=== PATIENT | female | born 1985 | race Caucasian/White ===

== ENCOUNTER 2021-11-26 13:47 | Emergency (ER) | payer OTHER, SELFPAY ==
[2021-11-26 13:50] VITALS: BP 166/85; PULSE 85; RESP 16; TEMP 36.6; O2SAT 100; BMI 22.4
--- NOTE | 2021-11-26 15:58 | ED_ITS ---
HPI - Back Pain/Injury General Chief Complaint: Back Pain/Injury Stated Complaint: right pain between back and chest Time Seen by Provider: 11/26/21 15:44 History of Present Illness HPI Narrative: Patient is a 36-year-old female with no past medical history is presenting today with right-sided chest shoulder pain. She says been ongoing for last 4 days. She says she bleached her hair with care diet as she did it twice left it on for an hour each time. She does has done this multiple times in the past. She is not concerned that she may have damaged her liver. She has absolutely no abdominal pain no nausea no vomiting no fever. It does not hurt when she moves. She says her pain is right from her nipple around to her back. Kind of in her scapula. She has no chest pain no shortness of breath. Not reproducible with arm movement. She says she has been traveling for the last 6 months they stay in 1 place for a month and then move on. They are now here permanently. She does not yet have provider set up. She previously had ulcers from ibuprofen. She has not taken any [id number] medication any. Related Data Allergies Allergy/AdvReac Type Severity Reaction Status Date / Time No Known Drug Allergies Allergy Verified 11/26/21 13:57 Review of Systems Review of Systems Narrative: GENERAL: Denies chills, fatigue, malaise, fever, sweats, travel HEENT: Denies sinus pain, ear pain, sore throat, difficulty swallowing, neck pain RESPIRATORY: Denies dyspnea, cough, wheezing, hemoptysis, sputum. CARDIOVASCULAR: See HPI GASTROINTESTINAL: Denies nausea, vomiting, abdominal pain, diarrhea, constipation, melena. : Denies dysuria, frequency, incontinence, hematuria, urinary retention, flank pain. MUSCULOSKELETAL: Denies weakness, joint pain, or bony pain SKIN: No rash, no erythema, no pruritus NEUROLOGIC: Denies weakness, dizziness, headache, numbness, change in speech, confusion PSYCHIATRIC: No concerning psychosocial issues. 12 point review of systems is negative except for those stated above and HPI Patient History Social History Smoking Status: Never smoker Smoking Status: Never smoker alcohol intake frequency: 0-2 drinks per day Substance Use Type: marijuana Exam Initial Vital Signs Initial Vital Signs: Vital Signs Temperature 97.9 F 11/26/21 13:50 Pulse Rate 85 11/26/21 13:50 Respiratory Rate 16 11/26/21 13:50 Blood Pressure 166/85 H 11/26/21 13:50 Pulse Oximetry 100 11/26/21 13:50 Oxygen Delivery Method 11/26/21 13:50 GENERAL: Well-appearing, well-nourished and in no acute distress. HEENT: Head atraumatic,EOMI, pupils reactive, face symmetric, moist mucous membranes CARDIOVASCULAR: Regular rate and rhythm without murmurs, rubs or gallops. Pain is mildly reproducible on back with scapula. RESPIRATORY: Breath sounds equal bilaterally, no wheezes rales or rhonchi. ABDOMEN: Soft, nontender. Normoactive bowel sounds all 4 quadrants. No guarding or rebound. No Mcgarry sign : No CVA tenderness EXTREMITIES: Normal range of motion, no clubbing or edema. Neurovascularly intact NEUROLOGICAL: Alert and oriented x4. SKIN: Warm, dry, no laceration, no petechiae, no rashes or lesions. Scores PERC Score Age greater than or equal to 50 years: No Heart rate greater than or equal to 100 bpm: No Room Air O2 Sat less than 95%: No Unilateral leg swelling: No Recent trauma or surgery: No Hemoptysis: No Prior PE or DVT: No Hormone Use: No Total PERC Score: 0 Course Orders Ordered: ED Orders 11/26/21 16:09 Chest [XR chest 2V] Stat 11/26/21 16:30 CBC Auto Diff [Complete Blood Count AUTO DIFF] Stat CMP [Comprehensive Metabolic Panel] Stat D Dimer Stat Vital Signs Vital signs: Vital Signs - 8 hr 11/26/21 13:50 11/26/21 17:09 Temperature 97.9 F Pulse Rate 85 Respiratory Rate 16 Blood Pressure 166/85 H 156/84 H Pulse Oximetry 100 99 Oxygen Delivery Method Room Air Room Air MDM - Back Pain/Injury Lab Data Result diagrams: 11/26/21 16:30 11/26/21 16:30 Labs: Lab Results 11/26/21 11/26/21 11/26/21 Range/Units 16:30 16:30 16:30 WBC 6.5 (4.5-11.0) X10^3/uL RBC 4.87 (4.0-5.2) X10^6/uL Hgb 13.5 (12.0-16.0) g/dL Hct 40.3 (36-46) % MCV 82.7 (80-100) fL MCH 27.7 (26-34) PG MCHC 33.5 (30-36) % RDW 12.9 (11.6-14.8) % Plt Count 305 (150-400) X10^3/uL Neut % (Auto) 70.9 (50-75) % Lymph % (Auto) 22.7 L (25-40) % Towner % (Auto) 5.1 (3-14) % Eos % (Auto) 0.6 L (2-4) % Baso % (Auto) 0.7 (0-2) % Neut # (Auto) 4600 (8363-5706) /uL Lymph # (Auto) 1500 (3704-1059) /uL Towner # (Auto) 300 (0-900) /uL Eos # (Auto) 0 (0-450) /uL Baso # (Auto) 0 (0-100) /uL D-Dimer < 200 (<230) ng/mL Sodium 138 (137-145) mmol/L Potassium 3.9 (3.4-5.1) mmol/L Chloride 105 (98-107) mmol/L Carbon Dioxide 26 (22-32) mmol/L BUN 9 (7-17) mg/dL Creatinine 0.67 (0.52-1.04) mg/dL Estimated GFR > 60 (>60) mL/min BUN/Creatinine Ratio 13.4 (6-22) Glucose 95 (70-100) mg/dL Calcium 9.4 (8.4-10.2) mg/dL Total Bilirubin 0.6 (0.2-1.3) mg/dL AST 24 (14-36) IU/L ALT 14 (<35) IU/L Alkaline Phosphatase 51 (38-126) U/L Total Protein 7.7 (6.3-8.2) g/dL Albumin 4.8 (3.5-5.0) g/dL Globulin 2.9 (1.7-4.1) g/dL Albumin/Globulin Ratio 1.7 (1.0-2.8) MDM Narrative Medical decision making narrative: Topical air bleach should not cause damage to liver when used appropriately. She states that she did use it twice but this is unlikely a significant amount. Blood work is overall reassuring. Due to her recent travel D-dimer was checked and is negative. She has a negative chest x-ray. It does hurt mildly when she moves her arm but really is not pinpoint. He does not want to take any pain medications afraid of masking something important. She previously had gastric ulcers from taking ibuprofen so I recommend Tylenol if she wants. This time there is no need for any further workup. Patient is reassured Discharge Plan Departure Patient Disposition: Home Clinical Impression: Back strain Activity Restrictions/Additional Instructions: *You have been diagnosed with back strain *What to do: There is no evidence of a liver damage or kidney damage. Chest x- ray is negative./at this time recommend increasing activity as tolerated, heating pad *Continue to take medications as directed Tylenol 1000 mg every 6 hours if needed for fcgg-di-guahcoha pain *Follow up with your primary care provider in 2-3 days or call [phone] *Return to ER if you should have nausea vomiting fever increasing chest pain or shortness of breath or any new, worsening or concerning symptoms Visit Report Forms: Patient Portal/API
--- NOTE | 2021-11-26 16:09 | DI.RAD.S_ITS ---
PROCEDURE: XR CHEST 2V INDICATIONS: right sided pain TECHNIQUE: 2 views of the chest were acquired. COMPARISON: None. FINDINGS: Surgical changes and devices: None. Lungs and pleura: Lungs are clear. No pleural effusions or pneumothorax. Mediastinum: Mediastinal contours are normal. Heart size is normal. Bones and chest wall: No suspicious bony abnormalities. Soft tissues appear unremarkable. IMPRESSION: No acute cardiopulmonary abnormality. Dictated by: Irvin Adam M.D. on 11/26/2021 at 16:34 Approved by: Irvin Adam M.D. on 11/26/2021 at 16:35
[2021-11-26 16:38] LABS: Add Manual Diff / Slide Review NO; Basophils Absolute Auto 0 /uL (0-100); Basophils Percent Auto 0.7 % (0-2); Eosinophils Absolute Auto 0 /uL (0-450); Eosinophils Percent Auto 0.6 % (2-4); Hematocrit 40.3 % (36-46); Hemoglobin 13.5 g/dL (12.0-16.0); Lymphocytes Absolute Auto 1500 /uL (1100-4500); Lymphocytes Percent Auto 22.7 % (25-40); Mean Corpuscular HGB Conc 33.5 % (30-36); Mean Corpuscular Hemoglobin 27.7 PG (26-34); Mean Corpuscular Volume 82.7 fL (80-100); Monocytes Absolute Auto 300 /uL (0-900); Monocytes Percent Auto 5.1 % (3-14); Neutrophils Absolute Auto 4600 /uL (1500-7000); Neutrophils Percent Auto 70.9 % (50-75); Platelet Count 305 X10^3/uL (150-400); Red Blood Cell Count 4.87 X10^6/uL (4.0-5.2); Red Cell Distribution Width 12.9 % (11.6-14.8); White Blood Cell Count 6.5 X10^3/uL (4.5-11.0)
[2021-11-26 16:52] LABS: Alanine Aminotransferase 14 IU/L (<35); Albumin 4.8 g/dL (3.5-5.0); Albumin Globulin Ratio 1.7 (1.0-2.8); Alkaline Phosphatase 51 U/L (38-126); Aspartate Aminotransferase 24 IU/L (14-36); BUN Creatinine Ratio 13.4 (6-22); Bilirubin Total 0.6 mg/dL (0.2-1.3); Blood Urea Nitrogen 9 mg/dL (7-17); Calcium 9.4 mg/dL (8.4-10.2); Carbon Dioxide 26 mmol/L (22-32); Chloride 105 mmol/L (98-107); Estimated Glomerular Filt Rate > 60 mL/min (>60); Globulin 2.9 g/dL (1.7-4.1); Glucose 95 mg/dL (70-100); HEMOLYSIS < 15 (0-50); Potassium 3.9 mmol/L (3.4-5.1); Sodium 138 mmol/L (137-145); Total Protein 7.7 g/dL (6.3-8.2)
[2021-11-26 16:53] LABS: D Dimer < 200 ng/mL (<230)
[2021-11-26 17:09] VITALS: BP 156/84; O2SAT 99
== END 2021-11-26 17:09 | disposition home or self-care (01) ==
PROVIDERS: Emergency Provider Emergency Medicine
DX: S39.012A Strain of muscle, fascia and tendon of lower back, initial encounter (principal); R07.9 Chest pain, unspecified
CPT/HCPCS: 36415; 71046; 80053; 85025; 85379; 99281; 99284

== ENCOUNTER → 2022-03-29 12:13 | Outpatient (CLI) | payer OTHER, SELFPAY ==
[2022-03-29 13:09] LABS: Add Manual Diff / Slide Review NO; Basophils Absolute Auto 0 /uL (0-100); Basophils Percent Auto 0.5 % (0-2); Eosinophils Absolute Auto 100 /uL (0-450); Eosinophils Percent Auto 1.5 % (2-4); Hematocrit 40.3 % (36-46); Hemoglobin 13.8 g/dL (12.0-16.0); Lymphocytes Absolute Auto 1900 /uL (1100-4500); Mean Corpuscular HGB Conc 34.2 % (30-36); Mean Corpuscular Hemoglobin 28.3 PG (26-34); Mean Corpuscular Volume 82.7 fL (80-100); Monocytes Absolute Auto 400 /uL (0-900); Monocytes Percent Auto 6.2 % (3-14); Neutrophils Absolute Auto 3800 /uL (1500-7000); Neutrophils Percent Auto 60.8 % (50-75); Platelet Count 311 X10^3/uL (150-400); Red Blood Cell Count 4.88 X10^6/uL (4.0-5.2); White Blood Cell Count 6.2 X10^3/uL (4.5-11.0)
[2022-03-29 14:41] LABS: Blood Urea Nitrogen 13 mg/dL (7-17); Calcium 9.9 mg/dL (8.4-10.2); Carbon Dioxide 24 mmol/L (22-32); Chloride 106 mmol/L (98-107); Estimated Glomerular Filt Rate > 60 mL/min (>60); Glucose 91 mg/dL (70-100); HEMOLYSIS < 15 (0-50); Sodium 139 mmol/L (137-145)
== END ==
PROVIDERS: PCP Family Medicine; Referring Provider Family Medicine; Visit Provider Family Medicine
DX: K62.5 Hemorrhage of anus and rectum (principal); Z80.0 Family history of malignant neoplasm of digestive organs
CPT/HCPCS: 36415; 80048; 85025

== ENCOUNTER 2023-11-10 10:28 | Day surgery (SDC) | payer OTHER, SELFPAY ==
[2023-11-10] MEDS: LACTATED RINGERS 1,000 ML 42 ML IV (10:55)
--- NOTE | 2023-11-10 11:06 | P.HP_ITS ---
History of Present Illness History of Present Illness Date Patient Seen: 11/10/23 Time Patient Seen: 11:06 Chief complaint: Colonoscopy Narrative: 48-year-old woman with a BRCA mutation here for 1st time screening colonoscopy. Occasional rectal bleeding during wiping. [facility] Medical History BRCA gene mutation positive in female FHx: breast cancer in first degree relative ADD (attention deficit disorder) without hyperactivity History of cold sores Chicken pox (~1990) Heavy menstrual period Hemorrhoid Left arm pain Mental health disorder Rectal bleeding FHx: colon cancer Surgical History Buck[place] teeth removed Uterine polyp (~2014) Family History Grandfather Cancer Grandmother Cancer Social History Smoking Status: Former smoker Meds Home Medications and Allergies Home Medications Medication Instructions Recorded Confirmed Type peg 3350-sod sulf,[id number] 1,000 ml PO DIRECTED #2,000 mL 09/28/23 Rx 178.7-7.3-0.5-1.12-0.9 gram oral soln (Suflave) Allergies Allergy/AdvReac Type Severity Reaction Status Date / Time No Known Drug Allergies Allergy Verified 06/18/23 11:23 Exam Narrative Exam Narrative: General adult woman alert oriented no acute distress Chest nonlabored respiration Extremities warm well perfused Assessment & Plan Assessment & Plan narrative: The patient requires colorectal screening and colonoscopy is recommended. Technical details were discussed. Risks, benefits, alternatives explained. Risks including but not limited to myocardial infarction, aspiration, bleeding, pain, missed lesion, incomplete examination, need for further radiographic studies, intestinal injury, and need for major abdominal surgery were discussed. All questions were answered to their satisfaction, and they are in agreement with this plan.
[2023-11-10 11:09] VITALS: BP 156/97; PULSE 104; RESP 18; TEMP 37.2; O2SAT 100
--- NOTE | 2023-11-10 11:12 | P.OP.COLON_ITS ---
Operative Date/Time/Diagnoses Date of procedure: 11/10/23 Time of procedure: 11:26 Pre-op diagnosis: Colorectal screening Post-op diagnosis: same Procedure & Clinicians Study performed: Screening colonoscopy Same procedure as scheduled: Yes Indications: Colorectal screening Surgeon: Gareth Armstrong Procedure Notes Procedure in detail: The history and physical was performed/updated and the patient is ASA class is 1. The procedure was discussed in detail with the patient. Potential risks complications including infection, bleeding, missed diagnosis, perforation, need for surgery, and were explained. Their questions were answered and informed consent was obtained. Patient was brought to the procedure room and placed standard monitoring equipment. The patient's vital signs were monitored continuously throughout the entire procedure. Prior to starting time-out was performed. The patient was placed in the left lateral recumbent position. Procedural sedation was administered by anesthesia. Examination began with a thorough inspection of the perianal area there was no evidence of fissures, fistulae, external hemorrhoids or cutaneous malignancy. The colonoscopy scope was then placed into the anal canal and was advanced to the cecum, which was identified by the ileocecal valve, the appendiceal orifice and the confluence of the taenia. The scope was then slowly withdrawn examining colon thoroughly in all directions, irrigating it of any residual stool. The scope was retroflexed within the rectum The patient tolerated the procedure well. They will be discharged once criteria are met. The prep was of good/excellent quality. The withdrawl time was 6 minutes. FINDINGS * Unremarkable colonoscopy. Normal healthy colonic mucosa without polyps or diverticulum Specimen(s): none sent Impression: Normal colonoscopy Post-procedure Recommendations: Colonoscopy in 5 years (For family history) Disposition: same day surgery
[2023-11-10 11:31] VITALS: BP 99/65; PULSE 80; RESP 18; TEMP 36.6; O2SAT 99
[2023-11-10 11:33] VITALS: BP 114/67; PULSE 78; RESP 16; O2SAT 100
[2023-11-10 11:39] VITALS: BP 113/71; PULSE 75; RESP 16; O2SAT 100
[2023-11-10 11:43] VITALS: BP 95/68; PULSE 75; RESP 19; TEMP 36.8; O2SAT 100
== END 2023-11-10 12:03 | disposition home or self-care (01) ==
PROVIDERS: PCP Family Medicine; Referring Provider Surgery; Visit Provider Surgery
PROC: 0DJD8ZZ Inspection of Lower Intestinal Tract, Via Natural or Artificial Opening Endoscopic (ICD-10-PCS; CPT 45378; principal; 2023-11-10 11:15)
DX: Z12.11 Encounter for screening for malignant neoplasm of colon (principal); Z15.01 Genetic susceptibility to malignant neoplasm of breast
CPT/HCPCS: 45378; J2250; J2704

== ENCOUNTER → 2024-06-01 08:43 | Outpatient (CLI) | payer OTHER, SELFPAY | PROVIDERS: PCP Family Medicine; Visit Provider Student in an Organized Health Care Education/Training Program | DX: R35.0 Frequency of micturition (principal); N89.8 Other specified noninflammatory disorders of vagina | CPT/HCPCS: 87086; 87210 ==

== ENCOUNTER → 2025-02-22 10:20 | Outpatient (CLI) | payer OTHER, SELFPAY ==
[2025-02-22 11:22] LABS: Hematocrit 39.0 % (36-46); Hemoglobin 13.3 g/dL (12.0-16.0); Mean Corpuscular HGB Conc 34.1 % (30-36); Mean Corpuscular Hemoglobin 28.0 PG (26-34); Mean Corpuscular Volume 82.1 fL (80-100); Platelet Count 355 X10^3/uL (150-400)
[2025-02-22 11:59] LABS: Alanine Aminotransferase 16 IU/L (<35); Albumin 4.7 g/dL (3.5-5.0); Albumin Globulin Ratio 1.9 (1.0-2.8); Alkaline Phosphatase 65 U/L (38-126); Blood Urea Nitrogen 14 mg/dL (7-17); Calcium 10.0 mg/dL (8.4-10.2); Carbon Dioxide 24 mmol/L (22-32); Chloride 105 mmol/L (98-107); Estimated Glomerular Filt Rate > 60 mL/min (>60); Globulin 2.5 g/dL (1.7-4.1); Glucose 83 mg/dL (70-99); HEMOLYSIS < 15 (0-50); Potassium 4.3 mmol/L (3.4-5.1); Sodium 139 mmol/L (137-145); Total Protein 7.2 g/dL (6.3-8.2)
[2025-02-22 12:21] LABS: TSH w/ Reflex to FT4 1.53 uIU/mL (0.47-4.68)
== END ==
PROVIDERS: PCP Family Medicine; Referring Provider Nurse Practitioner Family; Visit Provider Nurse Practitioner Family
DX: R63.5 Abnormal weight gain (principal); K92.1 Melena; R10.9 Unspecified abdominal pain
CPT/HCPCS: 80053; 84443; 85027

== ENCOUNTER → 2025-05-02 16:10 | Outpatient (CLI) | payer OTHER, SELFPAY ==
--- NOTE | 2025-05-02 16:11 | DI.US.S_ITS ---
PROCEDURE: US PELVIC COMPLETE INDICATIONS: irregular periods, uterine polyp seen. TECHNIQUE: Real-time scanning was performed of the pelvic organs, with image documentation. Additional endovaginal scanning was necessary due to incomplete visualization of the adnexal and endometrial structures by transabdominal scanning. COMPARISON: None. FINDINGS: Uterus: Uterus is anteverted and normal in size at 9.9 x 4.9 x 6.1 cm. The myometrium is heterogeneous. The endometrium measures 10.4 mm combined thickness. Mid posterior intramural fibroid measuring 1.7 x 1.5 x 1.3 cm. Ovaries: The right ovary measures 3.7 x 2.8 x 2.1 cm, with a calculated ovarian volume of 8.0 cc. Right ovarian cyst measuring 1.1 x 1.1 x 1.9 cm filled with debris, may represent a hemorrhagic cyst. The left ovary measures 2.2 x 2.3 x 2.1 cm, with a calculated ovarian volume of 5.6 cc. Less than 12 follicles can be seen in each ovary. No adnexal masses are seen. Other: No pathologic free abdominal or pelvic fluid. IMPRESSION: Likely hemorrhagic cyst in the right ovary measuring 1.9 cm. Endometrium is normal in thickness for a premenopausal female measuring 10 mm. Intramural fibroid measuring 1.7 cm. We strive to produce accurate, complete, and clear reports of imaging services. To assist us in improving patient care, this report was composed using standard report templates and voice recognition software. Therefore, it may contain abnormal punctuation, insertions and/or omissions. Occasional wrong-word or sound-alike substitutions may occur. Though we review the report and make efforts to correct it, we do recommend that the report be read carefully in proper context to recognize any text inaccuracies. Dictated by: Micheal Barnes M.D. on 05/03/2025 at 9:34 Approved by: Micheal Barnes M.D. on 05/03/2025 at 9:38
== END ==
PROVIDERS: PCP Nurse Practitioner Family; Referring Provider Student in an Organized Health Care Education/Training Program; Visit Provider Student in an Organized Health Care Education/Training Program
DX: N92.6 Irregular menstruation, unspecified (principal); N84.0 Polyp of corpus uteri; D25.1 Intramural leiomyoma of uterus; N83.201 Unspecified ovarian cyst, right side
CPT/HCPCS: 76830; 76856